=== PATIENT | male | born 1985 | race Two or more races ===

== ENCOUNTER 2016-07-12 00:35 | Emergency (ER) | payer SELFPAY ==
[~2016-07-12] VITALS: Ht 172.7 cm; Wt 77.3 kg
[2016-07-12] MEDS ORDERED: SODIUM CHLORIDE 0.9% 1,000ML IVBOLUS ONE (01:30)
[2016-07-12] MEDS ORDERED: SODIUM CHLORIDE FLUSH 10ML SYR IVF ONE (01:30)
[2016-07-12] MEDS ORDERED: ONDANSETRON 2MG/ML, 2ML IVPush ONE (01:30)
[2016-07-12] MEDS ORDERED: PROPOFOL 10 MG/ML, 20ML IVPush ONE ×2 (01:30→02:30)
[2016-07-12] MEDS ORDERED: PROPOFOL 10 MG/ML, 20ML ONE (01:35)
[2016-07-12] MEDS ORDERED: ONDANSETRON 2MG/ML, 2ML ONE (01:35)
[2016-07-12 03:43] VITALS: BP 135/90
== END 2016-07-12 03:59 | disposition home or self-care (01) ==
LOC: ED 03:53
DX: S43.084A Other dislocation of right shoulder joint, initial encounter (principal); S80.211A Abrasion, right knee, initial encounter; S60.512A Abrasion of left hand, initial encounter; F12.10 Cannabis abuse, uncomplicated; W03.XXXA Other fall on same level due to collision with another person, initial encounter; Y93.89 Activity, other specified; Y92.89 Other specified places as the place of occurrence of the external cause; Y99.8 Other external cause status
CPT/HCPCS: 23650; 73020; 73030; 73110; 96361; 96374; 99152; 99153; 99285; J2405; J2704; J7030